=== PATIENT | male | born 1995 | race African-American/Black ===

== ENCOUNTER 2024-05-27 19:41 | Emergency (ER) | payer OTHER ==
[~2024-05-27] VITALS: Ht 193 cm; Wt 81.6 kg
[2024-05-27 22:18] VITALS: TEMP 98.1
[2024-05-27 23:23] LABS: APPEARANCE,URINE CLEAR (CLEAR); BILIRUBIN,URINE NEGATIVE (NEGATIVE); BLOOD, URINE NEGATIVE Ery/uL (NEGATIVE); COLOR,URINE YELLOW (YELLOW); KETONES,URINE NEGATIVE (NEGATIVE); LEUKOCYTE ESTERASE ,URINE NEGATIVE (NEGATIVE); NITRITE, URINE NEGATIVE (NEGATIVE); PH,URINE 7.5 (5.0-8.0); PROTEIN,URINE TRACE mg/dl (NEGATIVE); UGLUCOSE NEGATIVE (NEGATIVE)
[2024-05-27 23:27] LABS: ADD URINE CULTURE NO; BACTERIA,URINE Rare /HPF (None Seen); RBC,URINE 0-2 /HPF (0-2); SQUAMOUS EPITHELIAL CELL,UR Few /HPF (None Seen); WBC,URINE 0-2 /HPF (0-3)
[2024-05-27] MEDS ORDERED: CEFTRIAXONE 1 G VIAL ONE (23:42)
[2024-05-27] MEDS ORDERED: AZITHROMYCIN 250 MG TABLET ONE (23:42)
[2024-05-27] MEDS: CEFTRIAXONE 1 G VIAL IM ONE (23:47)
[2024-05-27] MEDS: AZITHROMYCIN 250 MG TABLET PO ONE (23:47)
[2024-05-27 23:48] VITALS: BP 124/70; O2SAT 99
[2024-05-30 20:10] LABS: CHLAMYDIA TRACHOMATIS NAA Negative (Negative); NEISSERIA GONORRHOEAE NAA Negative (Negative)
== END 2024-05-27 23:52 | disposition home or self-care (01) ==
LOC: ER 19:53
DX: N34.2 Other urethritis (principal); R30.0 Dysuria
CPT/HCPCS: 99283; 96372; 81001; 87491; 87591; J0696